=== PATIENT | female | born 1955 | race Two or more races ===

== ENCOUNTER → 2024-09-06 | Emergency (ER) | payer OTHER ==
[~2024-09-06] VITALS: Ht 162.6 cm; Wt 113.4 kg
[~2024-09-06] MED LIST: CEFTRIAXONE SODIUM 1,000 MG VIAL IM ONE; CEFTRIAXONE SODIUM 1,000 MG VIAL ONE; CEFUROXIME500 MG PO; DIPHTH,PERTUSS(ACELL),TET VAC 0.5 ML SYRINGE IM ONE; KETOROLAC TROMETHAMINE 60 MG VIAL IM ONE; LIDOCAINE HCL 1% 10ML VIAL ONE; LIDOCAINE HCL 1% 10ML VIAL PERCUT ONE; LOSARTAN POTAS100 MG PO; PEPCID AC20 MG PO; TETANUS & DIPHTHERIA TOX,ADULT 0.5 ML VIAL IM ONE
== END | disposition home or self-care (01) ==
LOC: ER 21:57 → EDBD 21:57 → ER 23:53
DX: S81.011A Laceration without foreign body, right knee, initial encounter (principal); W18.39XA Other fall on same level, initial encounter; Y93.89 Activity, other specified; Y92.22 Religious institution as the place of occurrence of the external cause; Y99.9 Unspecified external cause status